=== PATIENT | female | born 1980 | race Caucasian/White ===

== ENCOUNTER → 2018-11-09 22:26 | Emergency (ER) | payer MEDICAID ==
[~2018-11-09 22:26] MED LIST: ACETAMINOPHEN500 M1 PO; CYCLOBENZAPRINE10 MG PO; FUROSEMIDE20 MG PO; IBUPROFEN800 MG PO; NAPROSYN500 MG PO
== END | disposition left against medical advice (07) ==
LOC: D.ER 22:26
DX: M54.5 Low back pain (principal)

== ENCOUNTER 2018-11-10 11:10 | Emergency (ER) | payer MEDICAID ==
[~2018-11-10] VITALS: Ht 175.3 cm; Wt 109.1 kg
[2018-11-10 11:17] VITALS: BP 145/86; Ht 175.3 cm; Wt 109.1 kg
[2018-11-10] MEDS ORDERED: ACETAMINOPHEN500 M1 PO (12:10)
[2018-11-10] MEDS ORDERED: CYCLOBENZAPRINE10 MG PO (12:10)
[2018-11-10] MEDS ORDERED: IBUPROFEN800 MG PO (12:10)
== END 2018-11-10 12:30 | disposition home or self-care (01) ==
LOC: D.ER 11:10
DX: M54.5 Low back pain (principal)

== ENCOUNTER 2018-11-14 19:38 | Emergency (ER) | payer MEDICAID ==
[~2018-11-14] VITALS: Ht 175.3 cm; Wt 142.4 kg
[~2018-11-14 19:38] MED LIST changes: -FUROSEMIDE20 MG PO; -NAPROSYN500 MG PO
[2018-11-14 20:11] VITALS: Ht 175.3 cm; Wt 142.4 kg
[2018-11-14 20:57] LABS: BASOPHILS 0.3 % (0-2); EOSINOPHILS 3.8 % (0-7); HEMATOCRIT 37.6 % (36.0-48.0); HEMOGLOBIN 12.8 g/dL (12-16); IMMATURE GRANULOCYTES 0.3 % (0-5); LYMPHOCYTES 32.5 % (15-50); MCH 29.8 pg (26.0-34.0); MCV 87.6 fL (80.0-100.0); MEAN PLATELET VOLUME 8.9 fL (7.4-10.4); NEUTROPHILS 56.1 % (40-80); PLATELET COUNT 295 10x3/uL (130-400); RBC 4.29 10x6/uL (4.00-5.40); RDW 13.1 % (11.5-14.5); WBC 7.3 10x3/uL (4.8-10.8)
[2018-11-14 21:00] LABS: ALBUMIN 2.9 g/dL (3.4-5.0); ALKALINE PHOSPHATASE 87 U/L (46-116); ALT (SGPT) 30 U/L (10-68); BILIRUBIN - TOTAL 0.23 mg/dL (0.2-1.3); CALC OSMOLALITY 281 mosm/kg (275-300); CALCIUM 8.5 mg/dL (8.5-10.1); CARBON DIOXIDE 31.4 mmol/L (21.0-32.0); CHLORIDE - SERUM 106 mmol/L (98-107); CREATININE - SERUM 0.7 mg/dL (0.6-1.3); GLUCOSE 87 mg/dL (74-106); POTASSIUM - SERUM 3.7 mmol/L (3.5-5.1); PROTEIN - SERUM 6.6 g/dL (6.4-8.2); SODIUM 143 mmol/L (136-145); UREA NITROGEN 8 mg/dL (7-18); eGFR NON AFRICAN AMERICAN > 90 mL/min (90-120)
[2018-11-14 21:11] LABS: CKMB 0.7 U/L (0.0-3.6); CREATINE KINASE 63 UL (21-215); PRO BNP 265 pg/mL (0-125)
[2018-11-14 21:12] LABS: TROPONIN-I < 0.017 ng/mL (0.000-0.060)
[2018-11-14] MEDS ORDERED: NAPROSYN500 MG PO (21:23)
[2018-11-14] MEDS ORDERED: FUROSEMIDE20 MG PO (21:23)
[2018-11-14 22:05] VITALS: BP 161/101
== END 2018-11-14 22:05 | disposition home or self-care (01) ==
LOC: D.ER 19:38
PROVIDERS: Emergency Medicine
DX: R60.0 Localized edema (principal); M79.605 Pain in left leg; M79.604 Pain in right leg